=== PATIENT | male | born 1975 | race Caucasian/White ===

== ENCOUNTER 2019-08-27 15:39 | Outpatient (CLI) | payer BC, MEDICAID ==
[~2019-08-27 15:39] MED LIST: NAPR-1154 PO
== END 2019-08-27 23:59 | disposition home or self-care (01) ==
LOC: LAB 15:39 → CAR 23:59
PROVIDERS: ATTEND Obstetrics & Gynecology
DX: F11.20 Opioid dependence, uncomplicated (principal)
CPT/HCPCS: 93005

== ENCOUNTER 2024-11-02 14:43 | Emergency (ER) | payer BC ==
[~2024-11-02] VITALS: Ht 180.3 cm; Wt 145.4 kg
--- NOTE | 2024-11-02 15:30 | Physician Documentation ---
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 Patient is asymptomatic he is more concerned if you will pass a pre-employment physical. Patient denies any significant cardiac history or family history he does not see primary care and does not get routine labs or take any medications. No dizziness shortness of breath or chest pain Medication Reconciliation Allergies: Coded Allergies: No Known Allergies (Unverified , 11/02/24) Scheduled Lisinopril* (Lisinopril*), 1 TAB PO DAILY Scheduled PRN Naproxen (Naprosyn), 1 TABLET PO BID PRN for pain Past Medical History Past Medical History: No Pertinent History Past Surgical History: orthopedic surgeries Alcohol Use: None Drug Use: none Lives with: Family Lives In: Home Occupation: employed Review of Systems All Other Systems at this time: Reviewed and Negative Cardiovascular: Reports: see HPI Physical Exam Vital Signs: RN Vital Signs have been reviewed: Yes, Temperature: 98.4, Source: Temporal, Heart Rate: 98, Respiratory Rate: 16, BP: 213/113, Pulse Oximetry: 99, Weight: 145.450 Oxygen Flow Rate: 0 Physical Exam General: Alert, no apparent distress. HEENT: PERRL, EOMI, no injection, moist mucous membranes. Neck: Full range of motion. Respiratory: Lungs clear, no respiratory distress. Chest: No accessory muscle use. Cardiovascular: Regular rate and rhythm, no murmurs. Extremities: Normal range of motion, no deformity. Neurologic: Oriented x4. Psychiatric: Normal mood and affect. Skin: Normal color, warm and dry. No edema, no ecchymosis. Progress Results/Orders Results/Orders Completed Orders - OLIVIA RODRIGUEZ NP Cbc/Diff (11/02/24 15:25) Electrocardiogram (11/02/24 15:25) BMP (11/02/24 15:25) Lisinopril Tablet (Zestril Tablet) (11/02/24 15:25) Lisinopril Tablet (Zestril Tablet) (11/02/24 15:30) Medications Received in ER Medications (Trade) Dose Ordered Sig/Sebastian Route PRN Reason Start Time Stop Time Status Last Admin Dose Admin (Zestril tablet) 40 mg ONCE ONCE PO 11/02/24 15:25 11/02/24 15:28 DC 11/02/24 15:34 40 MG Vital Signs 11/02/24 11/02/24 11/02/24 11/02/24 14:48 15:29 15:34 15:35 Temp 98.4 Pulse 98 88 88 Resp 16 18 B/P (MAP) 213/113 175/117 (136) Pulse Ox 99 98 O2 Flow Rate 0 0 Laboratory Tests Test 11/02/24 15:45 White Blood Count 7.7 Red Blood Count 5.09 Hemoglobin 14.0 Hematocrit 41.6 L Mean Corpuscular Volume 81.7 Mean Corpuscular Hemoglobin 27.4 Mean Corpuscular Hemoglobin Concent 33.6 Red Cell Distribution Width 14.6 H Platelet Count 217 Mean Platelet Volume 8.1 Neutrophils (%) (Auto) 73.7 Lymphocytes (%) (Auto) 15.2 L Monocytes (%) (Auto) 6.4 Eosinophils (%) (Auto) 3.5 Basophils (%) (Auto) 1.2 H Neutrophils # (Auto) 5.7 Lymphocytes # (Auto) 1.2 Monocytes # (Auto) 0.5 Eosinophils # (Auto) 0.3 Basophils # (Auto) 0.1 CBC Comment Sodium Level 134 L Potassium Level 4.0 Chloride Level 101 Carbon Dioxide Level 24.5 Anion Gap 9 Blood Urea Nitrogen 11 Creatinine 0.94 Estimated GFR/1.73 m2 86 BUN/Creatinine Ratio 11.7 Glucose Level 106 H Calcium Level 9.1 Albumin 3.4 Chemistry Comments EKG/XRAY/CT/US/VASC/MRI EKG : Additional Comment EKG sinus rhythm at 90 beats per minute normal axis no acute ST-T abnormalities Medical Decision Making Findings Symptomatic hypertension he states he knew his blood pressure was slightly elevated a few years ago started taking it for a pre-employment physical. No chest pain shortness of breath dizziness. CBC CMP EKG have been ordered to evaluate further as well as 40 of lisinopril with discussion of finding primary care taking medication as prescribed taking blood pressure daily with parameters. Labs are reassuring kidney function unremarkable medications prescribed to follow up with primary care Departure Time of Disposition: 16:31 Disposition: 01 HOME / SELF CARE / HOMELESS Impression: Primary Impression: Benign hypertension Condition: Stable Discharge Instructions: Hypertension, Adult, [id number] Additional Instructions: Take blood pressure medications every morning take blood pressure in the morning prior to taking the medication hold if top number is under 100. Follow up with primary care for routine labs and evaluation as well as monitoring blood pressure did feel free to return to the ER for any new or worsening symptoms. Avoid caffeine and salt Referrals: NO PRIMARY CARE PROVIDER (PCP) Prescriptions Furosemide (LASIX) 20 Mg Tablet 1 TAB PO DAILY for 30 Days, #30 TAB 0 Refills Prov: OLIVIA RODRIGUEZ NP 11/02/24 Lisinopril* (Lisinopril*) 40 Mg Tablet 1 TAB PO DAILY for 30 Days, #30 TAB 2 Refills Prov: OLIVIA RODRIGUEZ NP 11/02/24 Education Educated: Patient Educated regarding: diagnosis, treatment, need for follow up Signature Scribe Signature: No scribe Attestation: The note accurately reflects work and decisions made by me.Olivia COPELAND 11/02/24 15:30 OLIVIA RODRIGUEZ NP Nov 02, 2024 15:30
--- NOTE | 2024-11-02 15:32 | ELECTROCARDIOGRAPH REPORT ---
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
[2024-11-02 16:01] LABS: MEAN PLATELET VOLUME 8.1 FL (7.4-10.4); RED CELL DISTRIBUTION WIDTH 14.6 % (11.5-14.5)
[2024-11-02 16:29] LABS: CREATININE 0.94 MG/DL (0.60-1.10); TOTAL CARBON DIOXIDE 24.5 MMOL/L (24-32); eCRCL 103 ML/MIN; eGFR 86 ML/MIN
[2024-11-02] MEDS ORDERED: LISI40TA20 PO (16:32)
[2024-11-02] MEDS ORDERED: FURO-150 PO (16:34)
[2024-11-02 16:44] VITALS: BP 146/112; PULSE 81; RESP 18; TEMP 98.4; O2SAT 97
== END 2024-11-02 16:52 | disposition home or self-care (01) ==
LOC: ER 14:43
DX: I10 Essential (primary) hypertension (principal); Z79.899 Other long term (current) drug therapy; Z98.890 Other specified postprocedural states
CPT/HCPCS: 36415; 80048; 85025; 93005; 99284